=== PATIENT | male | born 1995 | race Caucasian/White ===

== ENCOUNTER 2017-06-22 18:43 | Emergency (ER) | payer OTHER ==
[~2017-06-22] VITALS: Ht 185.4 cm; Wt 86.5 kg
[2017-06-22 18:44] VITALS: TEMP 36.4; Ht 185.4 cm; Wt 86.5 kg
--- NOTE | 2017-06-22 19:10 | EMERGENCY ROOM VISIT NOTE ---
ED Visit Note First contact with patient: 18:51 CHIEF COMPLAINT: Toothache HISTORY OF PRESENT ILLNESS: This patient is a 21-year-old white male presents emergency department with progressive pain in the left lower molar. This tooth has given him trouble for the last few months. He has an appointment set up to see his dentist for a root canal when he goes home for [facility]. He denies any fever or chills. He has tried ibuprofen with minimal relief of the pain. He denies any purulent drainage or foul taste in the mouth. REVIEW OF SYSTEMS: A 6 system review of systems was completed with positives and pertinent negatives listed in the HPI. ALLERGIES: No known drug allergies MEDICATIONS: Reviewed PMH: Otherwise healthy SOCIAL HISTORY: Occasional EtOH use. Denies tobacco use. PHYSICAL EXAM: Vitals are noted on the nurse's note and reviewed by myself. Vital signs stable. Temperature 36.4C orally. GENERAL: 21-year-old male, in no acute distress, nondiaphoretic, well-developed well-nourished. Mouth: The left lower molar is carious and the gum is mildly swollen and tender around it , without any discharge or signs of an abscess. The remainder of the pharynx and tonsils are without erythema, edema, or exudate. The airway is patent. There is no facial swelling,. Lymphadenopathy in the anterior cervical chain bilaterally.. The patient appears uncomfortable and in pain. The patient has overall fair dental hygiene. ED COURSE: The patient was seen and examined. Discharge instructions were reviewed, and he was discharged in good condition DIAGNOSIS: Odontalgia DISCHARGE INSTRUCTIONS & TREATMENT: Please take the entire course of antibiotics. Please take this medication with food. Ibuprofen 600 mg every 6 hours Percocet 1-2 tabs every 4 hours for severe pain. Do not drink alcohol or drive while taking this medication. This may be taken with ibuprofen, but avoid Tylenol. Please follow-up with your dentist as soon as possible. Return to the emergency department with any new or worsening symptoms; especially, significant swelling of the face, fever or difficulty swallowing This chart was completed in part utilizing [employer] Speech Voice Recognition software. Attempts were made to minimize the grammatical errors, random word insertions, pronoun errors and incomplete sentences. Any formal questions or concerns about the content, text or information contained within the body of this dictation should be directly addressed to the provider for clarification.
[2017-06-22] MEDS ORDERED: OXYC-57 PO (19:12)
[2017-06-22] MEDS ORDERED: AMOX875T3 PO (19:12)
[2017-06-22 19:22] VITALS: BP 138/70; PULSE 78; O2SAT 99
== END 2017-06-22 19:24 | disposition home or self-care (01) ==
LOC: C.EDB 18:43 → C.EDD 19:24
DX: K08.89 Other specified disorders of teeth and supporting structures (principal)

== ENCOUNTER 2017-09-15 16:48 | Emergency (ER) | payer OTHER ==
[~2017-09-15] VITALS: Ht 185.4 cm; Wt 87.5 kg
[~2017-09-15 16:48] MED LIST: OXYC-57 PO
[2017-09-15 16:53] VITALS: BP 135/80; TEMP 36.7; Ht 185.4 cm; Wt 87.5 kg
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
[2017-09-15 18:05] VITALS: PULSE 74; O2SAT 96
== END 2017-09-15 18:06 | disposition home or self-care (01) ==
LOC: C.EDB 16:49 → C.EDD 18:06
DX: R22.32 Localized swelling, mass and lump, left upper limb (principal)